=== PATIENT | female | born 1965 | race Caucasian/White ===

== ENCOUNTER → 2023-12-29 13:37 | Outpatient (REF) | payer BC, SELFPAY | LOC: WDC 13:37 | PROVIDERS: ATTENDING PHYSICIAN Surgery; FAMILY PHYSICIAN Family Medicine | DX: R92.8 Other abnormal and inconclusive findings on diagnostic imaging of breast (principal) | CPT/HCPCS: 76642 ==

== ENCOUNTER → 2024-03-14 11:53 | Outpatient (REF) | payer BC, SELFPAY | LOC: WDC 11:53 | PROVIDERS: ATTENDING PHYSICIAN Surgery | DX: Z12.31 Encounter for screening mammogram for malignant neoplasm of breast (principal) | CPT/HCPCS: 77063; 77067 ==

== ENCOUNTER → 2024-04-20 06:25 | Day surgery (SDC) | payer BC, SELFPAY | LOC: GI 06:25 | PROVIDERS: ATTENDING PHYSICIAN Internal Medicine Gastroenterology; FAMILY PHYSICIAN Family Medicine | DX: Z12.11 Encounter for screening for malignant neoplasm of colon (principal); K62.5 Hemorrhage of anus and rectum; Q43.8 Other specified congenital malformations of intestine; K64.8 Other hemorrhoids; K59.09 Other constipation | CPT/HCPCS: G0121 ==

== ENCOUNTER → 2025-01-12 09:28 | Outpatient (REF) | payer BC, SELFPAY | LOC: RAD 09:28 | PROVIDERS: ATTENDING PHYSICIAN Nurse Practitioner Family | DX: R10.9 Unspecified abdominal pain (principal) | CPT/HCPCS: 76770 ==

== ENCOUNTER 2025-02-13 13:07 | Emergency (ER) | payer BC, SELFPAY ==
[2025-02-13 13:12] VITALS: BP 155/84
[2025-02-13 13:52] LABS: % Basophils 0.7 % (0-2); % Eosinophils 3.3 % (0-6); % Immature Granulocytes 0.2 % (0-0.5); % Lymphocytes 38.8 % (20.5-51.1); % Monocytes 11.4 % (1.7-9.3); % Neutrophils 45.6 % (42.2-75.2); Absolute Eosinophils 0.1 10^3/uL (0-0.7); Absolute Lymphocytes 1.7 10^3/uL (1.2-3.4); Absolute Monocytes 0.5 10^3/uL (0.1-0.6); Hematocrit 40.1 % (37.0-47.0); Hemoglobin 13.7 g/dL (12.0-16.0); Mean Corp Hgb Conc. 34.2 g/dL (33.0-37.0); Mean Corpuscular Hgb 29.7 pg (27.0-31.0); Mean Corpuscular Volume 86.8 fL (81.0-99.0); Mean Platelet Volume 11.1 fL (7.4-10.4); Nucleated Red Blood Cells % 0 %; Platelet Count 173 10^3/uL (130-400); Red Blood Cell Count 4.62 10^6/uL (4.20-5.40); Red Cell Dist. Width 12.3 % (11.5-14.5); White Blood Cell Count 4.3 10^3/uL (4.8-10.8)
--- NOTE | 2025-02-13 14:04 | ED.GENMED ---
History of Present Illness
General
Chief Complaint: Chest Pain
Time Seen by Provider: 02/13/25 14:03
History of Present Illness
History of Present Illness:
TIME OF INITIAL ENCOUNTER: 2:05 PM
HPI: At about 1:45 PM today, the patient developed left-sided chest tightness. This was nonradiating. She has not had similar episodes in the past. She states she saw artificial cherry maker about 4-5 years ago. She does not have any known coronary
disease. She does not have any shortness of breath. She also was concerned because her horse was diagnosed recently with anaplasmosis. The pain seems to worsen when she flexes forward. However she also reported some discomfort when she was
walking earlier as well.
EXAM:
GENERAL: Well appearing in no distress
HEENT: Moist oral mucosa
CARDIOVASCULAR: No murmurs, normal heart rate, regular rhythm, mild to moderate left anterior chest wall tenderness
PULMONARY: No respiratory distress, breath sounds are clear and equal
ABDOMEN: Soft with no peritoneal signs, no tenderness
NEUROLOGIC: Excellent strength all extremities, no coordination deficits
PSYCHIATRIC: Appropriate mental status, normal insight and judgement
EXTREMITIES: Nontender, no edema, moves all extremities equally
SKIN: No rash, no lesions, mild to moderate left anterior
NUMBER AND COMPLEXITY OF PROBLEMS ADDRESSED AT THE ENCOUNTER
� Chronic conditions affecting care: Allergies, iron deficiency anemia, thyroid disease
� Acute Exacerbation and/or Progression of Chronic Illness: This is an acute problem
� Differential Diagnosis includes: Chest wall pain, ACS, doubt PE as there is no shortness of breath, GERD,
AMOUNT AND/OR COMPLEXITY OF DATA TO BE REVIEWED AND ANALYZED
� I performed an independent evaluation of and my interpretation is:
EKG: Sinus 61, no acute ST abnormality
CT:
X-rays: Chest x-ray shows no acute abnormality
Laboratory Studies: CBC unremarkable other than minimal leukopenia, chemistries unremarkable except bicarb is 31, initial troponin less than 0.012
Other:
� Review of other/old records: I reviewed old records but no old cardiology notes
� Clinical information was obtained by an independent historian: None needed but I did speak to daughter at bedside
� Prescriptions/Medications Considered but not given:
� Further testing considered but not performed:
RISK OF COMPLICATIONS AND/OR MORBIDITY OR MORTALITY OF PATIENT MANAGEMENT
� Social determinants of health affecting care: Lives at home
� Discussion with other providers:
� Escalation of care including admission/observation vs risk of discharge considered: The patient had left sided chest discomfort that started about an hour prior to arrival. Initial EKG and troponin unremarkable. Will check
second troponin.
ANY OTHER UPDATES:
5:50 PM: Second troponin reported as negative. She reports only minimal if any chest discomfort. I offered and considered nitroglycerin over the patient refuses.
6:05 PM: The patient still has some minimal discomfort at times described as stabbing now and sharp. She does have an area to the anterior chest wall in which she really jumped with palpation. This could be chest wall pain. We also talked about
the possibly of could there be a component of anxiety with the upcoming trip that she has to [place] tomorrow for business. She is to follow-up with [facility]. Encouraged to return here if worse or other concerns.
Past History
Past History
ED Past Medical History: None
ED Past Surgical History: None
Social History
Tobacco: Non-smoker
Alcohol: None
Drug: None
Personal:
Living: with family
Employment: Not employed
Phy Exam
Physical Exam
Physical Exam:
See HPI
Scores
Heart Score for Chest Pain Patients
STEMI patient?: No
History: Slightly or Non-Suspicious
ECG: Normal
Age: >45 - <65 years
Risk Factors: No Risk Factors
Troponin: </= Normal Limit
Heart Score for Chest Pain Patients: 1
Heart Score Risk: 2.5% MACE over next 6 weeks
Course
Orders/Labs/Results
Orders:
Orders
02/13/25 13:09
Electrocardiogram (*1) Urgent
Reason for Study: Chest Pain
EKG- Treatment ONCE
02/13/25 13:25
Complete Blood Count/With Diff Urgent
Comprehensive Metabolic Panel Urgent
Troponin I Urgent
02/13/25 14:52
CR Chest - 2 Views Urgent
Comment:
Reason For Exam: L pain
02/13/25 16:49
Anaplasma phagocytophila IgG/M [S] Urgent
Lyme Progressive Urgent
Troponin I Urgent
Abnormal Lab Results
02/13/25
13:25
WBC 4.3 L 10^3/uL
(4.8-10.8)
MPV 11.1 H fL
(7.4-10.4)
Monocytes % 11.4 H %
(1.7-9.3)
Carbon Dioxide 31 H mmol/L
(22-30)
02/13/25 13:25
02/13/25 13:25
Vital Signs
Initial and Last Documented VS:
Initial Vital Signs
Temp Pulse Resp BP Pulse Ox
36.8 C 62 20 155/84 99
02/13/25 13:12 02/13/25 13:12 02/13/25 13:12 02/13/25 13:12 02/13/25 13:12
Last Documented Vital Signs
Temp Pulse Resp BP Pulse Ox
36.8 C 62 20 155/84 99
02/13/25 13:12 02/13/25 13:12 02/13/25 13:12 02/13/25 13:12 02/13/25 13:12
*Critical Care Note
Total Time (30-74mins, 75-104mins- exclusive of procedures): Not Applicable
ED Attending Note
-
Portions of this chart may have been created with voice recognition software.� Occasional wrong word or��sound alike� substitutions may have occurred due to the inherent limitations of voice recognition software.
Discharge Plan
Departure
Patient Disposition: Home (Routine Discharge)
Date of Disposition: 02/13/25
Time of Disposition: 18:01
Patient with high blood pressure during this ER visit?: Yes
Discharge Problem:
Chest pain
Instructions: Chest Pain [facility] Follow Up, BLOOD PRESSURE
Prescriptions:
No Action
ibuprofen 200 MG tablet
400 mg PO DAILYPRN PRN (Reason: pain)
Referrals:
Michael Pak DO [Family Provider] -
Carlito Lee MD [Active] - Follow up in 2-3 days
Activity Restrictions/Additional Instructions:
If your symptoms worsen overnight, I recommend that you return here and not go on your trip. If your symptoms worsen while you are in [place], I recommend that you go to an ER there. I am giving the contact information for one of the artificial cherry maker
with [facility], Dr. Billings. Somebody from their office should be calling you to arrange close follow-up. You could also try [id number] Advil to see if that helps with could be pain coming from the chest wall. Return here if
worse or other concerns.
Interventions
Interventions:
*Risk Screen - Suicide Last Done: 02/13/25 13:12
*General Assessment Last Done: 02/13/25 13:12
*Neglect/Abuse Screening Last Done: 02/13/25 13:12
ED- Cardiac Assessment Last Done: 02/13/25 14:40
Discharge Date and Time
Print Language: BENGALI
[2025-02-13 14:08] LABS: ALT (SGPT) 32 U/L (0-35); AST (SGOT) 35 U/L (14-36); Albumin 4.6 g/dl (3.5-5.0); Alkaline Phosphatase 64 U/L (38-126); Blood Urea Nitrogen 17 mg/dl (7-17); Calcium 9.2 mg/dl (8.4-10.2); Carbon Dioxide 31 mmol/L (22-30); Chloride 100 mmol/L (98-107); Glucose 98 mg/dl (70-99); Potassium 4.4 mmol/L (3.5-5.1); Sodium 138 mmol/L (135-145); Total Bilirubin 0.7 mg/dl (0.2-1.3); Total Protein 6.8 g/dl (6.3-8.2); eGFR > 60.00
[2025-02-13 14:19] LABS: Troponin I < 0.012 ng/ml
[2025-02-13 14:40] VITALS: BMI 28.2
[2025-02-13 17:31] LABS: Troponin I < 0.012 ng/ml
[2025-02-13 18:26] VITALS: BP 150/80
== END 2025-02-13 18:29 | disposition home or self-care (01) ==
LOC: EMR 13:07
PROVIDERS: EMERGENCY PHYSICIAN Emergency Medicine; FAMILY PHYSICIAN Family Medicine
DX: R07.89 Other chest pain (principal); R03.0 Elevated blood-pressure reading, without diagnosis of hypertension; Z88.8 Allergy status to other drugs, medicaments and biological substances; Z88.6 Allergy status to analgesic agent; Z91.041 Radiographic dye allergy status; Z91.040 Latex allergy status
CPT/HCPCS: 99283; 71046; 80053; 84484; 85025; 86618; 86666; 93005

== ENCOUNTER → 2025-03-14 13:29 | Outpatient (REF) | payer BC, SELFPAY | LOC: RCS 13:29 | PROVIDERS: ATTENDING PHYSICIAN Internal Medicine Interventional Cardiology; FAMILY PHYSICIAN Family Medicine | DX: R07.9 Chest pain, unspecified (principal) | CPT/HCPCS: 93017; 93306 ==

== ENCOUNTER → 2025-04-10 15:48 | Outpatient (REF) | payer BC, SELFPAY | LOC: WDC 15:48 | PROVIDERS: ATTENDING PHYSICIAN Surgery; FAMILY PHYSICIAN Family Medicine | DX: Z12.31 Encounter for screening mammogram for malignant neoplasm of breast (principal) | CPT/HCPCS: 77063; 77067 ==